=== PATIENT | female | born 1965 | race African-American/Black ===

== ENCOUNTER 2021-08-23 12:07 | Inpatient (IN) | payer OTHER ==
[2021-08-23 12:47] VITALS: BMI 17.3
[2021-08-23] MEDS ORDERED: MAGNESIUM CITRATE 300 ML BOTTLE PO PRN (15:28)
[2021-08-23] MEDS ORDERED: ONDANSETRON *ODT* 4 MG TABLET SL PRN (15:28)
[2021-08-23] MEDS ORDERED: IBUPROFEN 400 MG TABLET (FP) PO PRN (15:28)
[2021-08-23] MEDS ORDERED: DICYCLOMINE HCL 10 MG CAPSULE PO PRN (15:28)
[2021-08-23] MEDS ORDERED: NICOTINE 10 MG CARTRIDGE (INHALER) IH PRN (15:28)
[2021-08-23] MEDS ORDERED: LOPERAMIDE HCL 2 MG CAPSULE PO PRN (15:28)
[2021-08-23] MEDS ORDERED: MAG HYDROX/AL HYDROX/SIMETH 30 ML UNIT-DOSE CUP PO PRN (15:28)
[2021-08-23] MEDS ORDERED: ACETAMINOPHEN 325 MG TABLET (FP) PO PRN (15:28)
[2021-08-23] MEDS ORDERED: MAGNESIUM HYDROX 2400MG/30ML ORAL SUSPENSION 30 ML CUP PO PRN (15:28)
[2021-08-23] MEDS ORDERED: BISMUTH SUBSALICYLATE 524 MG/30 ML PO PRN (15:28)
[2021-08-23] MEDS ORDERED: IBUPROFEN 600 MG TABLET (FP) PO PRN (15:28)
[2021-08-23] MEDS ORDERED: BENZOCAINE/MENTHOL (CHLORASEPTIC ) LOZENGE MM PRN (15:28)
[2021-08-23] MEDS: METHOCARBAMOL 500 MG TABLET PO PRN (17:47)
[2021-08-23] MEDS: hydrOXYzine PAMOATE 25 MG CAPSULE (FP) PO SCH ×2 (17:47→22:34)
[2021-08-23] MEDS: THIAMINE HCL 100 MG TABLET (FP) PO SCH (22:33)
[2021-08-23] MEDS: MELATONIN 5 MG TABLETS PO SCH (22:34)
[2021-08-24] MEDS: hydrOXYzine PAMOATE 25 MG CAPSULE (FP) PO SCH ×6 (06:15→23:31)
[2021-08-24] MEDS: METHOCARBAMOL 500 MG TABLET PO PRN (06:45)
[2021-08-24] MEDS ORDERED: LORazepam 1 MG TABLET PO PRN (10:33)
[2021-08-24] MEDS: PRENATAL VITAMINS W/ FOLIC ACID TABLET (FP) PO SCH (10:34)
[2021-08-24] MEDS: LORazepam 2 MG TABLET PO SCH ×3 (11:14→22:19)
[2021-08-24] MEDS: EMTRICITAB/RILPIVIRINE/TENOFOV 1 EACH TABLET PO SCH (13:03)
[2021-08-24 14:19] LABS: ALBUMIN 3.3 g/dl (3.4-5.0); CALCIUM 9.1 mg/dL (8.5-10.1)
[2021-08-24 14:20] LABS: BLOOD UREA NITROGEN 16.1 mg/dL (7-18)
[2021-08-24 14:23] LABS: CREATININE 0.8 mg/dL (0.55-1.3)
[2021-08-24 14:24] LABS: BILIRUBIN,TOTAL 0.2 mg/dL (0.2-1); TOT PROT 6.1 g/dl (6.4-8.2)
[2021-08-24 14:51] LABS: HEMATOCRIT 34.9 % (32.4-45.2); HEMOGLOBIN 11.5 GM/dL (10.7-15.3); MCH 29.2 pg (25.7-33.7); MEAN CELL VOLUME 88.7 fl (80-96); MEAN PLT VOLUME 9.4 fl (7.5-11.1); PLATELET COUNT 275 10^3/uL (134-434); RBC 3.94 M/mm3 (3.60-5.2)
[2021-08-24] MEDS: THIAMINE HCL 100 MG TABLET (FP) PO SCH (22:19)
[2021-08-24] MEDS: MELATONIN 5 MG TABLETS PO SCH (22:19)
[2021-08-24] MEDS: LATANOPROST 0.005% OPHTH SOLN 2.5ML BOTTLE OU SCH (22:32)
[2021-08-25] MEDS: LORazepam 2 MG TABLET PO SCH ×4 (05:54→22:21)
[2021-08-25] MEDS: hydrOXYzine PAMOATE 25 MG CAPSULE (FP) PO SCH ×5 (05:54→22:21)
[2021-08-25] MEDS: METHOCARBAMOL 500 MG TABLET PO PRN ×2 (05:56→14:16)
[2021-08-25] MEDS: ACETAMINOPHEN 325 MG TABLET (FP) PO PRN (05:56)
[2021-08-25] MEDS: EMTRICITAB/RILPIVIRINE/TENOFOV 1 EACH TABLET PO SCH (08:22)
[2021-08-25] MEDS: PRENATAL VITAMINS W/ FOLIC ACID TABLET (FP) PO SCH (10:07)
[2021-08-25] MEDS: VITAMINS A AND D TOPICAL OINTMENT 60 GM TUBE TP PRN (19:15)
[2021-08-25] MEDS: THIAMINE HCL 100 MG TABLET (FP) PO SCH (22:21)
[2021-08-25] MEDS: MELATONIN 5 MG TABLETS PO SCH (22:21)
[2021-08-25] MEDS: LATANOPROST 0.005% OPHTH SOLN 2.5ML BOTTLE OU SCH (22:24)
[2021-08-26] MEDS: ACETAMINOPHEN 325 MG TABLET (FP) PO PRN (04:45)
[2021-08-26] MEDS: LORazepam 1 MG TABLET PO SCH ×4 (05:48→22:29)
[2021-08-26] MEDS: hydrOXYzine PAMOATE 25 MG CAPSULE (FP) PO SCH ×5 (05:48→22:28)
[2021-08-26] MEDS: EMTRICITAB/RILPIVIRINE/TENOFOV 1 EACH TABLET PO SCH (07:41)
[2021-08-26] MEDS ORDERED: traZODone HCL 50 MG TABLET (FP) PO PRN (10:00)
[2021-08-26] MEDS: PRENATAL VITAMINS W/ FOLIC ACID TABLET (FP) PO SCH (10:06)
[2021-08-26] MEDS: VITAMINS A AND D TOPICAL OINTMENT 60 GM TUBE TP PRN (17:39)
[2021-08-26] MEDS: METHOCARBAMOL 500 MG TABLET PO PRN (18:41)
[2021-08-26] MEDS: MELATONIN 5 MG TABLETS PO SCH (22:28)
[2021-08-26] MEDS: THIAMINE HCL 100 MG TABLET (FP) PO SCH (22:28)
[2021-08-26] MEDS: LATANOPROST 0.005% OPHTH SOLN 2.5ML BOTTLE OU SCH (23:59)
[2021-08-27] MEDS ORDERED: LORazepam 0.5 MG TABLET PO PRN
[2021-08-27] MEDS: LORazepam 0.5 MG TABLET PO SCH ×2 (06:20→10:10)
[2021-08-27] MEDS: hydrOXYzine PAMOATE 25 MG CAPSULE (FP) PO SCH ×3 (06:21→13:09)
[2021-08-27] MEDS: EMTRICITAB/RILPIVIRINE/TENOFOV 1 EACH TABLET PO SCH (07:06)
[2021-08-27] MEDS: PRENATAL VITAMINS W/ FOLIC ACID TABLET (FP) PO SCH (10:10)
[2021-08-27] MEDS: METHOCARBAMOL 500 MG TABLET PO PRN (10:10)
[2021-08-27 13:13] VITALS: BP 117/69; PULSE 68; TEMP 96.9
[2021-08-27] MEDS ORDERED: QUEtiapine FUMARATE 25 MG TABLET PO SCH (22:00)
[2021-08-28] MEDS ORDERED: LORazepam 0.5 MG TABLET PO ONE (05:00)
== END 2021-08-27 14:11 | disposition other institution (70) | DRG 774 ==
LOC: YASAS 12:07 → Y3N 16:14
PROVIDERS: ADMIT Allergy & Immunology; ATTEND Family Medicine Addiction Medicine
PROC: HZ2ZZZZ Detoxification Services for Substance Abuse Treatment (ICD-10-PCS; principal; 2021-08-23)
DX: F10.230 Alcohol dependence with withdrawal, uncomplicated (principal); F14.20 Cocaine dependence, uncomplicated; F17.210 Nicotine dependence, cigarettes, uncomplicated; Z21 Asymptomatic human immunodeficiency virus [HIV] infection status; D64.9 Anemia, unspecified; G47.00 Insomnia, unspecified; J45.909 Unspecified asthma, uncomplicated; K64.9 Unspecified hemorrhoids; R63.4 Abnormal weight loss; Z68.1 Body mass index [BMI] 19.9 or less, adult; Z86.19 Personal history of other infectious and parasitic diseases; Z91.014 Allergy to mammalian meats; Z91.018 Allergy to other foods
CPT/HCPCS: 36415; 80053; 81025; 85027; 86593; 86780; 93005; 93010; C9803-CS; U0003; U0005

== ENCOUNTER 2022-05-05 09:07 | Inpatient (IN) | payer OTHER ==
[2022-05-05 09:43] VITALS: BMI 17.4
[2022-05-05] MEDS ORDERED: NALOXONE HCL (KLOXXADO) 8 MG SPRAY NS PRN (11:22)
[2022-05-05] MEDS ORDERED: BISMUTH SUBSALICYLATE 524 MG/30 ML PO PRN (11:22)
[2022-05-05] MEDS ORDERED: MAGNESIUM HYDROX 2400MG/30ML ORAL SUSPENSION 30 ML CUP PO PRN (11:22)
[2022-05-05] MEDS ORDERED: IBUPROFEN 600 MG TABLET (FP) PO PRN (11:22)
[2022-05-05] MEDS ORDERED: hydrOXYzine PAMOATE 25 MG CAPSULE (FP) PO PRN (11:22)
[2022-05-05] MEDS ORDERED: LOPERAMIDE HCL 2 MG CAPSULE PO PRN (11:22)
[2022-05-05] MEDS ORDERED: BENZOCAINE/MENTHOL (CHLORASEPTIC ) LOZENGE MM PRN (11:22)
[2022-05-05] MEDS ORDERED: DICYCLOMINE HCL 10 MG CAPSULE PO PRN (11:22)
[2022-05-05] MEDS ORDERED: ONDANSETRON *ODT* 4 MG TABLET SL PRN (11:22)
[2022-05-05] MEDS ORDERED: METHOCARBAMOL 500 MG TABLET PO PRN (11:22)
[2022-05-05] MEDS ORDERED: ACETAMINOPHEN 325 MG TABLET (FP) PO PRN ×2 (11:22)
[2022-05-05] MEDS ORDERED: MAG HYDROX/AL HYDROX/SIMETH 30 ML UNIT-DOSE CUP PO PRN (11:22)
[2022-05-05] MEDS ORDERED: IBUPROFEN 400 MG TABLET (FP) PO PRN (11:22)
[2022-05-05] MEDS ORDERED: POLYETHYLENE GLYCOL (HEALTHYLAX) 3350 17 GM PACKET PO PRN (11:22)
[2022-05-05] MEDS: diazePAM 5 MG TABLET PO SCH ×3 (11:39→22:48)
[2022-05-05] MEDS: PRENATAL VITAMINS W/ FOLIC ACID TABLET (FP) PO SCH (11:57)
[2022-05-05] MEDS ORDERED: BICTEGRAV/EMTRICIT/TENOFOV (BIKTARVY) 50-200-25 MG TABLET PO SCH (12:00)
[2022-05-05] MEDS: MELATONIN 5 MG TABLETS PO SCH (22:30)
[2022-05-05] MEDS: THIAMINE HCL 100 MG TABLET (FP) PO SCH (22:30)
[2022-05-06] MEDS: diazePAM 5 MG TABLET PO SCH ×4 (06:01→23:25)
[2022-05-06] MEDS: NICOTINE 10 MG CARTRIDGE (INHALER) IH PRN ×2 (06:05→17:41)
[2022-05-06] MEDS: BICTEGRAV/EMTRICIT/TENOFOV (BIKTARVY) 50-200-25 MG TABLET PO SCH (07:29)
[2022-05-06] MEDS: PRENATAL VITAMINS W/ FOLIC ACID TABLET (FP) PO SCH (10:43)
[2022-05-06] MEDS: THIAMINE HCL 100 MG TABLET (FP) PO SCH (22:18)
[2022-05-06] MEDS: MELATONIN 5 MG TABLETS PO SCH (22:18)
[2022-05-07] MEDS: diazePAM 5 MG TABLET PO SCH ×3 (05:26→22:25)
[2022-05-07] MEDS: BICTEGRAV/EMTRICIT/TENOFOV (BIKTARVY) 50-200-25 MG TABLET PO SCH (07:06)
[2022-05-07] MEDS: PRENATAL VITAMINS W/ FOLIC ACID TABLET (FP) PO SCH (10:13)
[2022-05-07 13:45] VITALS: RESP 18
[2022-05-07] MEDS: NICOTINE 10 MG CARTRIDGE (INHALER) IH PRN (17:20)
[2022-05-07] MEDS: MELATONIN 5 MG TABLETS PO SCH (22:25)
[2022-05-07] MEDS: THIAMINE HCL 100 MG TABLET (FP) PO SCH (22:25)
[2022-05-08] MEDS ORDERED: diazePAM 5 MG TABLET PO SCH (06:00)
[2022-05-08] MEDS: BICTEGRAV/EMTRICIT/TENOFOV (BIKTARVY) 50-200-25 MG TABLET PO SCH (07:18)
[2022-05-08] MEDS: PRENATAL VITAMINS W/ FOLIC ACID TABLET (FP) PO SCH (09:41)
[2022-05-08 12:59] VITALS: BP 126/77; PULSE 69; TEMP 97.3
[2022-05-09] MEDS ORDERED: diazePAM 5 MG TABLET PO ONE (06:00)
== END 2022-05-08 12:34 | disposition home or self-care (01) | DRG 774 ==
LOC: YASAS 09:07 → Y3N 11:19
PROVIDERS: ADMIT Allergy & Immunology; ATTEND Surgery
PROC: HZ2ZZZZ Detoxification Services for Substance Abuse Treatment (ICD-10-PCS; principal; 2022-05-05)
DX: F10.230 Alcohol dependence with withdrawal, uncomplicated (principal); F14.20 Cocaine dependence, uncomplicated; F12.20 Cannabis dependence, uncomplicated; F17.210 Nicotine dependence, cigarettes, uncomplicated; Z21 Asymptomatic human immunodeficiency virus [HIV] infection status; G47.00 Insomnia, unspecified; D64.9 Anemia, unspecified; D57.3 Sickle-cell trait; R63.4 Abnormal weight loss; Z68.1 Body mass index [BMI] 19.9 or less, adult; Z20.2 Contact with and (suspected) exposure to infections with a predominantly sexual mode of transmission
CPT/HCPCS: 87811; C9803-CS; U0003; U0005

== ENCOUNTER 2022-08-01 12:10 | Inpatient (IN) | payer OTHER ==
[2022-08-01 12:23] VITALS: BMI 16.6
[2022-08-01] MEDS ORDERED: BENZOCAINE/MENTHOL (CHLORASEPTIC ) LOZENGE MM PRN (12:39)
[2022-08-01] MEDS ORDERED: NALOXONE HCL 0.4 MG/ML VIAL IM PRN (12:39)
[2022-08-01] MEDS ORDERED: IBUPROFEN 400 MG TABLET (FP) PO PRN (12:39)
[2022-08-01] MEDS ORDERED: LOPERAMIDE HCL 2 MG CAPSULE PO PRN (12:39)
[2022-08-01] MEDS ORDERED: NICOTINE 10 MG CARTRIDGE (INHALER) IH PRN (12:39)
[2022-08-01] MEDS ORDERED: IBUPROFEN 600 MG TABLET (FP) PO PRN (12:39)
[2022-08-01] MEDS ORDERED: ACETAMINOPHEN 325 MG TABLET (FP) PO PRN (12:39)
[2022-08-01] MEDS ORDERED: ONDANSETRON *ODT* 4 MG TABLET SL PRN (12:39)
[2022-08-01] MEDS ORDERED: guaiFENesin 600 MG TABLET.ER (FP) PO PRN (12:39)
[2022-08-01] MEDS ORDERED: MAG HYDROX/AL HYDROX/SIMETH 30 ML UNIT-DOSE CUP PO PRN (12:39)
[2022-08-01] MEDS ORDERED: BENZONATATE 200 MG CAPSULE PO PRN (12:39)
[2022-08-01] MEDS ORDERED: DICYCLOMINE HCL 10 MG CAPSULE PO PRN (12:39)
[2022-08-01] MEDS ORDERED: MAGNESIUM HYDROX 2400MG/30ML ORAL SUSPENSION 30 ML CUP PO PRN (12:39)
[2022-08-01] MEDS ORDERED: POLYETHYLENE GLYCOL (HEALTHYLAX) 3350 17 GM PACKET PO PRN (12:39)
[2022-08-01] MEDS ORDERED: NALOXONE HCL (KLOXXADO) 8 MG SPRAY NS PRN (12:39)
[2022-08-01] MEDS: PRENATAL VITAMINS W/ FOLIC ACID TABLET (FP) PO SCH (15:46)
[2022-08-01] MEDS: chlordiazePOXIDE HCL 25 MG CAPSULE PO SCH ×2 (17:10→22:32)
[2022-08-01 17:18] LABS: POTASSIUM 3.7 mmol/L (3.5-5.1)
[2022-08-01 17:19] LABS: HEMATOCRIT 35.7 % (32.4-45.2); HEMOGLOBIN 12.3 GM/dL (10.7-15.3); MCH 30.2 pg (25.7-33.7); MCHC 34.4 g/dl (32.0-36.0); MEAN CELL VOLUME 87.8 fl (80-96); MEAN PLT VOLUME 8.7 fl (7.5-11.1); PLATELET COUNT 285 10^3/uL (134-434); RBC 4.07 M/mm3 (3.60-5.2); RDW 14.4 % (11.6-15.6); WHITE BLOOD COUNT 3.6 K/mm3 (4.0-10.0)
[2022-08-01 17:21] LABS: ALBUMIN 3.8 g/dl (3.4-5.0); BLOOD UREA NITROGEN 10.3 mg/dL (7-18); CALCIUM 9.4 mg/dL (8.5-10.1)
[2022-08-01 17:24] LABS: CREATININE 0.7 mg/dL (0.55-1.3)
[2022-08-01 17:26] LABS: BILIRUBIN,TOTAL 0.2 mg/dL (0.2-1)
[2022-08-01 17:27] LABS: TOT PROT 7.1 g/dl (6.4-8.2)
[2022-08-01] MEDS: THIAMINE HCL 100 MG TABLET (FP) PO SCH (22:31)
[2022-08-01] MEDS: MELATONIN 5 MG TABLETS PO SCH (22:31)
[2022-08-01] MEDS: METHOCARBAMOL 500 MG TABLET PO PRN (22:34)
[2022-08-02] MEDS: chlordiazePOXIDE HCL 25 MG CAPSULE PO SCH ×4 (05:55→22:17)
[2022-08-02] MEDS: METHOCARBAMOL 500 MG TABLET PO PRN ×2 (06:07→22:17)
[2022-08-02] MEDS: PRENATAL VITAMINS W/ FOLIC ACID TABLET (FP) PO SCH (10:19)
[2022-08-02] MEDS: BICTEGRAV/EMTRICIT/TENOFOV (BIKTARVY) 50-200-25 MG TABLET PO SCH (12:44)
[2022-08-02] MEDS: chlordiazePOXIDE HCL 25 MG CAPSULE PO PRN (13:10)
[2022-08-02] MEDS: THIAMINE HCL 100 MG TABLET (FP) PO SCH (22:17)
[2022-08-02] MEDS: MELATONIN 5 MG TABLETS PO SCH (22:17)
[2022-08-03] MEDS: chlordiazePOXIDE HCL 25 MG CAPSULE PO SCH ×4 (06:00→22:59)
[2022-08-03] MEDS: BICTEGRAV/EMTRICIT/TENOFOV (BIKTARVY) 50-200-25 MG TABLET PO SCH (08:06)
[2022-08-03] MEDS: PRENATAL VITAMINS W/ FOLIC ACID TABLET (FP) PO SCH (10:14)
[2022-08-03] MEDS: chlordiazePOXIDE HCL 25 MG CAPSULE PO PRN (15:29)
[2022-08-03] MEDS: MELATONIN 5 MG TABLETS PO SCH (22:58)
[2022-08-03] MEDS: THIAMINE HCL 100 MG TABLET (FP) PO SCH (22:59)
[2022-08-04] MEDS ORDERED: chlordiazePOXIDE HCL 10 MG CAPSULE PO PRN
[2022-08-04] MEDS: hydrOXYzine PAMOATE 25 MG CAPSULE (FP) PO PRN (01:21)
[2022-08-04] MEDS: METHOCARBAMOL 500 MG TABLET PO PRN (01:21)
[2022-08-04] MEDS: chlordiazePOXIDE HCL 10 MG CAPSULE PO SCH ×4 (05:55→22:35)
[2022-08-04] MEDS: BICTEGRAV/EMTRICIT/TENOFOV (BIKTARVY) 50-200-25 MG TABLET PO SCH (08:48)
[2022-08-04] MEDS: PRENATAL VITAMINS W/ FOLIC ACID TABLET (FP) PO SCH (10:21)
[2022-08-04] MEDS: BISMUTH SUBSALICYLATE 262 MG/15 ML BTL PO PRN (20:34)
[2022-08-04] MEDS: THIAMINE HCL 100 MG TABLET (FP) PO SCH (22:34)
[2022-08-04] MEDS: MELATONIN 5 MG TABLETS PO SCH (22:34)
[2022-08-05] MEDS: hydrOXYzine PAMOATE 25 MG CAPSULE (FP) PO PRN (03:02)
[2022-08-05] MEDS: chlordiazePOXIDE HCL 10 MG CAPSULE PO SCH ×2 (06:00→17:29)
[2022-08-05] MEDS: BISMUTH SUBSALICYLATE 262 MG/15 ML BTL PO PRN (06:09)
[2022-08-05] MEDS: BICTEGRAV/EMTRICIT/TENOFOV (BIKTARVY) 50-200-25 MG TABLET PO SCH (08:45)
[2022-08-05] MEDS: PRENATAL VITAMINS W/ FOLIC ACID TABLET (FP) PO SCH (10:45)
[2022-08-05] MEDS ORDERED: ALBUTEROL SO4 HFA INHALER IH PRN (20:43)
[2022-08-05] MEDS: MELATONIN 5 MG TABLETS PO SCH (22:21)
[2022-08-05] MEDS: THIAMINE HCL 100 MG TABLET (FP) PO SCH (22:21)
[2022-08-06] MEDS: METHOCARBAMOL 500 MG TABLET PO PRN (03:13)
[2022-08-06] MEDS ORDERED: chlordiazePOXIDE HCL 10 MG CAPSULE PO ONE (05:00)
[2022-08-06] MEDS: BICTEGRAV/EMTRICIT/TENOFOV (BIKTARVY) 50-200-25 MG TABLET PO SCH (07:19)
[2022-08-06 09:49] VITALS: BP 121/74; PULSE 63; RESP 18; TEMP 97.2
[2022-08-06] MEDS: PRENATAL VITAMINS W/ FOLIC ACID TABLET (FP) PO SCH (10:09)
== END 2022-08-06 09:10 | disposition home or self-care (01) | DRG 774 ==
LOC: YASAS 12:10 → Y6N 14:52
PROVIDERS: ADMIT Allergy & Immunology; ATTEND Surgery
PROC: HZ2ZZZZ Detoxification Services for Substance Abuse Treatment (ICD-10-PCS; principal; 2022-08-01)
DX: F14.20 Cocaine dependence, uncomplicated (principal); F12.20 Cannabis dependence, uncomplicated; F17.210 Nicotine dependence, cigarettes, uncomplicated; F19.282 Other psychoactive substance dependence with psychoactive substance-induced sleep disorder; F19.280 Other psychoactive substance dependence with psychoactive substance-induced anxiety disorder; Z21 Asymptomatic human immunodeficiency virus [HIV] infection status; J45.909 Unspecified asthma, uncomplicated; Z86.19 Personal history of other infectious and parasitic diseases
CPT/HCPCS: 36415; 80053; 85027; 86593; 86780; 87811; C9803-CS; U0003; U0005

== ENCOUNTER 2023-04-06 18:30 | Inpatient (IN) | payer OTHER ==
[2023-04-06 19:02] VITALS: BMI 18.3
[2023-04-06] MEDS ORDERED: LOPERAMIDE HCL 2 MG CAPSULE PO PRN (19:56)
[2023-04-06] MEDS ORDERED: BENZONATATE 200 MG CAPSULE PO PRN (19:56)
[2023-04-06] MEDS ORDERED: NALOXONE HCL (KLOXXADO) 8 MG SPRAY NS PRN (19:56)
[2023-04-06] MEDS ORDERED: IBUPROFEN 400 MG TABLET (FP) PO PRN (19:56)
[2023-04-06] MEDS ORDERED: guaiFENesin 600 MG TABLET.ER (FP) PO PRN (19:56)
[2023-04-06] MEDS ORDERED: POLYETHYLENE GLYCOL (HEALTHYLAX) 3350 17 GM PACKET PO PRN (19:56)
[2023-04-06] MEDS ORDERED: NALOXONE HCL 0.4 MG/ML VIAL IM PRN (19:56)
[2023-04-06] MEDS ORDERED: BENZOCAINE/MENTHOL (CHLORASEPTIC ) LOZENGE MM PRN (19:56)
[2023-04-06] MEDS ORDERED: MAG HYDROX/AL HYDROX/SIMETH 30 ML UNIT-DOSE CUP PO PRN (19:56)
[2023-04-06] MEDS ORDERED: MAGNESIUM HYDROX 2400MG/30ML ORAL SUSPENSION 30 ML CUP PO PRN (19:56)
[2023-04-06] MEDS ORDERED: IBUPROFEN 600 MG TABLET (FP) PO PRN (19:56)
[2023-04-07] MEDS: THIAMINE HCL 100 MG TABLET (FP) PO SCH ×2 (00:05→21:14)
[2023-04-07] MEDS: MELATONIN 5 MG TABLETS PO SCH ×2 (00:05→21:14)
[2023-04-07] MEDS ORDERED: MELATONIN 5 MG TABLETS ONE (00:44)
[2023-04-07] MEDS ORDERED: ALBUTEROL SO4 HFA INHALER IH PRN (05:56)
[2023-04-07] MEDS: PRENATAL VITAMINS W/ FOLIC ACID TABLET (FP) PO SCH (09:46)
[2023-04-07 10:50] LABS: CHLORIDE 107 mmol/L (98-107); POTASSIUM 3.8 mmol/L (3.5-5.1); SODIUM 138 mmol/L (136-145)
[2023-04-07 10:52] LABS: HEMATOCRIT 33.9 % (32.4-45.2); HEMOGLOBIN 11.3 GM/dL (10.7-15.3); MCH 29.3 pg (25.7-33.7); MCHC 33.5 g/dl (32.0-36.0); MEAN CELL VOLUME 87.4 fl (80-96); MEAN PLT VOLUME 8.1 fl (7.5-11.1); PLATELET COUNT 254 10^3/uL (134-434); RBC 3.87 M/mm3 (3.60-5.2); RDW 15.5 % (11.6-15.6); WHITE BLOOD COUNT 4.8 K/mm3 (4.0-10.0)
[2023-04-07 11:03] LABS: EPI CELLS >36 /uL (0-25.1); HYALINE CASTS 4 /uL (0-3.1); PH,URINE 5.5 (5.0-8.0); URINE APPEARANCE CLOUDY; URINE BACTERIA 670 /uL (0-1359); URINE BILIRUBIN NEGATIVE (NEGATIVE); URINE COLOR YELLOW; URINE GLUCOSE (UA) NEGATIVE (NEGATIVE); URINE KETONE NEGATIVE (NEGATIVE); URINE LEUK ESTERASE 1+ (NEGATIVE); URINE NITRITE NEGATIVE (NEGATIVE); URINE PROTEIN NEGATIVE (NEGATIVE); URINE RBC 9 /uL (0-23.9); URINE UROBILINOGEN 0.2 mg/dL (0.2-1.0); URINE WBC 119 /uL (0-25.8)
[2023-04-07 11:05] LABS: GLUCOSE,RANDOM 88 mg/dL (74-106)
[2023-04-07 11:12] LABS: CALCIUM 9.2 mg/dL (8.5-10.1)
[2023-04-07 11:13] LABS: ALBUMIN 3.2 g/dl (3.4-5.0); ANION GAP 6 mmol/L (4-13); BLOOD UREA NITROGEN 13.3 mg/dL (7-18); CO2 25 mmol/L (21-32)
[2023-04-07 11:15] LABS: SGPT/ALT 39 U/L (13-61)
[2023-04-07 11:16] LABS: CREATININE 0.8 mg/dL (0.55-1.3); SGOT/AST 41 U/L (15-37)
[2023-04-07 11:17] LABS: TOT PROT 6.5 g/dl (6.4-8.2)
[2023-04-07 11:18] LABS: ALK PHOS 44 U/L (45-117)
[2023-04-07 11:19] LABS: BILIRUBIN,TOTAL 0.5 mg/dL (0.2-1)
[2023-04-07] MEDS: BICTEGRAV/EMTRICIT/TENOFOV (BIKTARVY) 50-200-25 MG TABLET PO SCH (11:38)
[2023-04-07] MEDS: ACETAMINOPHEN 325 MG TABLET (FP) PO PRN (21:15)
[2023-04-08] MEDS: BICTEGRAV/EMTRICIT/TENOFOV (BIKTARVY) 50-200-25 MG TABLET PO SCH (07:15)
[2023-04-08] MEDS: PRENATAL VITAMINS W/ FOLIC ACID TABLET (FP) PO SCH (10:00)
[2023-04-08] MEDS: MELATONIN 5 MG TABLETS PO SCH (21:38)
[2023-04-08] MEDS: THIAMINE HCL 100 MG TABLET (FP) PO SCH (21:38)
[2023-04-09] MEDS: BICTEGRAV/EMTRICIT/TENOFOV (BIKTARVY) 50-200-25 MG TABLET PO SCH (07:01)
[2023-04-09] MEDS: PRENATAL VITAMINS W/ FOLIC ACID TABLET (FP) PO SCH (10:14)
[2023-04-09] MEDS: MELATONIN 5 MG TABLETS PO SCH (21:31)
[2023-04-09] MEDS: THIAMINE HCL 100 MG TABLET (FP) PO SCH (21:32)
[2023-04-10] MEDS: PRENATAL VITAMINS W/ FOLIC ACID TABLET (FP) PO SCH (10:00)
[2023-04-10] MEDS: ACETAMINOPHEN 325 MG TABLET (FP) PO PRN ×2 (10:01→22:24)
[2023-04-10] MEDS: BICTEGRAV/EMTRICIT/TENOFOV (BIKTARVY) 50-200-25 MG TABLET PO SCH ×2 (10:01→10:03)
[2023-04-10] MEDS: MELATONIN 5 MG TABLETS PO SCH (21:09)
[2023-04-10] MEDS: THIAMINE HCL 100 MG TABLET (FP) PO SCH (21:11)
[2023-04-10] MEDS: CLOTRIMAZOLE 1% CREAM TP SCH (21:12)
[2023-04-11] MEDS: COLLOIDAL OATMEAL 1 BAR EACH TP PRN (03:55)
[2023-04-11] MEDS: PRENATAL VITAMINS W/ FOLIC ACID TABLET (FP) PO SCH (09:58)
[2023-04-11] MEDS: BICTEGRAV/EMTRICIT/TENOFOV (BIKTARVY) 50-200-25 MG TABLET PO SCH (09:59)
[2023-04-11] MEDS: CLOTRIMAZOLE 1% CREAM TP SCH ×2 (09:59→21:15)
[2023-04-11] MEDS ORDERED: AMMONIUM LACTATE 12% LOTION 225 GM BOTTLE TP PRN (14:54)
[2023-04-11] MEDS: hydrOXYzine PAMOATE 25 MG CAPSULE (FP) PO PRN (17:42)
[2023-04-11] MEDS: ACETAMINOPHEN 325 MG TABLET (FP) PO PRN (21:15)
[2023-04-11] MEDS: MELATONIN 5 MG TABLETS PO SCH (21:45)
[2023-04-11] MEDS: THIAMINE HCL 100 MG TABLET (FP) PO SCH (21:45)
[2023-04-12] MEDS: PRENATAL VITAMINS W/ FOLIC ACID TABLET (FP) PO SCH (10:16)
[2023-04-12] MEDS: BICTEGRAV/EMTRICIT/TENOFOV (BIKTARVY) 50-200-25 MG TABLET PO SCH (10:16)
[2023-04-12] MEDS: CLOTRIMAZOLE 1% CREAM TP SCH ×2 (10:16→21:04)
[2023-04-12] MEDS: COLLOIDAL OATMEAL 1 BAR EACH TP PRN (17:29)
[2023-04-12] MEDS: ACETAMINOPHEN 325 MG TABLET (FP) PO PRN (21:04)
[2023-04-12] MEDS: THIAMINE HCL 100 MG TABLET (FP) PO SCH (21:04)
[2023-04-12] MEDS: MELATONIN 5 MG TABLETS PO SCH (21:04)
[2023-04-12] MEDS: hydrOXYzine PAMOATE 25 MG CAPSULE (FP) PO PRN (21:05)
[2023-04-13] MEDS: BICTEGRAV/EMTRICIT/TENOFOV (BIKTARVY) 50-200-25 MG TABLET PO SCH (10:46)
[2023-04-13] MEDS: CLOTRIMAZOLE 1% CREAM TP SCH ×2 (10:46→21:14)
[2023-04-13] MEDS: PRENATAL VITAMINS W/ FOLIC ACID TABLET (FP) PO SCH (10:46)
[2023-04-13] MEDS: hydrOXYzine PAMOATE 25 MG CAPSULE (FP) PO PRN (10:47)
[2023-04-13] MEDS: COLLOIDAL OATMEAL 1 BAR EACH TP PRN (10:48)
[2023-04-13] MEDS: LIDOCAINE 4% PATCH TP SCH (13:00)
[2023-04-13] MEDS ORDERED: LIDOCAINE PATCH REMOVAL MC SCH (22:00)
[2023-04-13] MEDS ORDERED: MIRTAZAPINE 15 MG TABLET (FP) PO SCH (22:00)
[2023-04-13] MEDS: THIAMINE HCL 100 MG TABLET (FP) PO SCH (22:17)
[2023-04-13] MEDS ORDERED: P-EPHED 60MG/TRIPROLIDI 2.5MG TABLET PO PRN (23:46)
[2023-04-14 00:27] VITALS: TEMP 97.3
[2023-04-14 06:53] VITALS: BP 100/63; PULSE 62; RESP 18
[2023-04-14] MEDS: PRENATAL VITAMINS W/ FOLIC ACID TABLET (FP) PO SCH (09:21)
[2023-04-14] MEDS: LIDOCAINE 4% PATCH TP SCH (09:21)
[2023-04-14] MEDS: CLOTRIMAZOLE 1% CREAM TP SCH (09:21)
[2023-04-14] MEDS: BICTEGRAV/EMTRICIT/TENOFOV (BIKTARVY) 50-200-25 MG TABLET PO SCH (09:21)
[2023-04-14] MEDS: hydrOXYzine PAMOATE 25 MG CAPSULE (FP) PO PRN (09:23)
[2023-04-14] MEDS ORDERED: guaiFENesin 600 MG TABLET.ER (FP) PO SCH (10:00)
== END 2023-04-14 10:15 | disposition left against medical advice (07) | DRG 770 ==
LOC: YASAS 18:30 → Y5N 04-07 00:33
PROVIDERS: ADMIT Allergy & Immunology; ATTEND Psychiatry & Neurology Pain Medicine
PROC: HZ42ZZZ Group Counseling for Substance Abuse Treatment, Cognitive-Behavioral (ICD-10-PCS; principal; 2023-04-07)
DX: F10.20 Alcohol dependence, uncomplicated (principal); F14.20 Cocaine dependence, uncomplicated; F12.20 Cannabis dependence, uncomplicated; F17.210 Nicotine dependence, cigarettes, uncomplicated; F41.9 Anxiety disorder, unspecified; U07.1 COVID-19; Z21 Asymptomatic human immunodeficiency virus [HIV] infection status; B35.1 Tinea unguium; R76.8 Other specified abnormal immunological findings in serum; R10.32 Left lower quadrant pain
CPT/HCPCS: 36415; 80053; 80307; 81003; 85027; 86593; 86780; 87635; 93005; 93010

== ENCOUNTER 2023-10-16 16:21 | Inpatient (IN) | payer OTHER ==
[2023-10-16 16:48] VITALS: BMI 16.2
[2023-10-16] MEDS ORDERED: IBUPROFEN 400 MG TABLET (FP) PO PRN (18:12)
[2023-10-16] MEDS ORDERED: hydrOXYzine PAMOATE 25 MG CAPSULE (FP) PO PRN (18:12)
[2023-10-16] MEDS ORDERED: DICYCLOMINE HCL 10 MG CAPSULE PO PRN (18:12)
[2023-10-16] MEDS ORDERED: ONDANSETRON *ODT* 4 MG TABLET SL PRN (18:12)
[2023-10-16] MEDS ORDERED: guaiFENesin 600 MG TABLET.ER (FP) PO PRN (18:12)
[2023-10-16] MEDS ORDERED: BENZOCAINE/MENTHOL (CHLORASEPTIC ) LOZENGE MM PRN (18:12)
[2023-10-16] MEDS ORDERED: METHOCARBAMOL 500 MG TABLET PO PRN (18:12)
[2023-10-16] MEDS ORDERED: ACETAMINOPHEN 325 MG TABLET (FP) PO PRN (18:12)
[2023-10-16] MEDS ORDERED: NALOXONE (NARCAN) HCL 4 MG/0.1 ML SPRAY NS PRN (18:12)
[2023-10-16] MEDS ORDERED: POLYETHYLENE GLYCOL (HEALTHYLAX) 3350 17 GM PACKET PO PRN (18:12)
[2023-10-16] MEDS ORDERED: NALOXONE HCL 0.4 MG/ML VIAL IM PRN (18:12)
[2023-10-16] MEDS ORDERED: BISMUTH SUBSALICYLATE 524 MG/30 ML PO PRN (18:12)
[2023-10-16] MEDS ORDERED: MAG HYDROX/AL HYDROX/SIMETH 30 ML UNIT-DOSE CUP PO PRN (18:12)
[2023-10-16] MEDS ORDERED: BENZONATATE 200 MG CAPSULE PO PRN (18:12)
[2023-10-16] MEDS: PRENATAL VITAMINS W/ FOLIC ACID TABLET (FP) PO SCH (19:27)
[2023-10-16] MEDS: LOPERAMIDE HCL 2 MG CAPSULE PO PRN (20:18)
[2023-10-16] MEDS: MELATONIN 5 MG TABLETS PO SCH (22:49)
[2023-10-16] MEDS: THIAMINE 100 MG TABLET PO SCH (22:50)
[2023-10-17] MEDS ORDERED: ALBUTEROL SO4 HFA INHALER IH SCH (07:30)
[2023-10-17] MEDS ORDERED: ALBUTEROL SO4 HFA INHALER IH PRN (09:23)
[2023-10-17] MEDS: BICTEGRAV/EMTRICIT/TENOFOV (BIKTARVY) 50-200-25 MG TABLET PO SCH (09:44)
[2023-10-17 11:55] LABS: HEMATOCRIT 35.3 % (32.4-45.2); HEMOGLOBIN 11.7 GM/dL (10.7-15.3); MCH 29.2 pg (25.7-33.7); MCHC 33.1 g/dl (32.0-36.0); MEAN CELL VOLUME 88.3 fl (80-96); MEAN PLT VOLUME 8.2 fl (7.5-11.1); PLATELET COUNT 267 10^3/uL (134-434); RDW 14.9 % (11.6-15.6); WHITE BLOOD COUNT 3.5 K/mm3 (4.0-10.0)
[2023-10-17 12:07] LABS: CHLORIDE 108 mmol/L (98-107); POTASSIUM 3.9 mmol/L (3.5-5.1); SODIUM 142 mmol/L (136-145)
[2023-10-17 12:14] LABS: ANION GAP 6 mmol/L (4-13); BLOOD UREA NITROGEN 11.7 mg/dL (7-18); CALCIUM 8.9 mg/dL (8.5-10.1); CO2 28 mmol/L (21-32); GLUCOSE,RANDOM 88 mg/dL (74-106)
[2023-10-17 12:16] LABS: CREATININE 0.8 mg/dL (0.55-1.3); SGPT/ALT 29 U/L (13-61)
[2023-10-17 12:17] LABS: SGOT/AST 32 U/L (15-37)
[2023-10-17 12:18] LABS: BILIRUBIN,TOTAL 0.2 mg/dL (0.2-1); TOT PROT 6.3 g/dl (6.4-8.2)
[2023-10-17 12:19] LABS: ALK PHOS 53 U/L (45-117)
[2023-10-17] MEDS: AMOX TR/POT CLAV 875MG/125MG TABLETS (FP) PO SCH (22:08)
[2023-10-17] MEDS: OFLOXACIN 0.3% OTIC SOLUTION 5 ML BOTTLE AS ONE (22:55)
[2023-10-18] MEDS: IBUPROFEN 600 MG TABLET (FP) PO PRN (19:52)
[2023-10-19] MEDS: MAGNESIUM HYDROX 2400MG/30ML ORAL SUSPENSION 30 ML CUP PO PRN (09:01)
[2023-10-19 09:47] VITALS: BP 104/60; PULSE 62; RESP 16; TEMP 97.8
== END 2023-10-19 12:04 | disposition home or self-care (01) | DRG 774 ==
LOC: YASAS 16:21 → Y3N 18:19
PROVIDERS: ADMIT Allergy & Immunology; ATTEND Surgery
PROC: HZ2ZZZZ Detoxification Services for Substance Abuse Treatment (ICD-10-PCS; principal; 2023-10-16)
DX: F10.230 Alcohol dependence with withdrawal, uncomplicated (principal); F14.20 Cocaine dependence, uncomplicated; F12.20 Cannabis dependence, uncomplicated; F41.9 Anxiety disorder, unspecified; F19.982 Other psychoactive substance use, unspecified with psychoactive substance-induced sleep disorder; F19.980 Other psychoactive substance use, unspecified with psychoactive substance-induced anxiety disorder; D57.3 Sickle-cell trait; G47.00 Insomnia, unspecified; Z21 Asymptomatic human immunodeficiency virus [HIV] infection status; Z87.42 Personal history of other diseases of the female genital tract; Z86.19 Personal history of other infectious and parasitic diseases; Z87.891 Personal history of nicotine dependence
CPT/HCPCS: 36415; 80053; 80305; 80307; 81025; 85027; 86593; 86780; 93005; 93010